=== PATIENT | male | born 1990 | race Caucasian/White ===

== ENCOUNTER 2025-01-08 12:20 | Emergency (ER) | payer MEDICAID, OTHER ==
[~2025-01-08] VITALS: Ht 167.6 cm; Wt 63.5 kg
[2025-01-08] MEDS: IV NORMAL SALINE 1000 ML BAG IV ONE (13:04)
[2025-01-08 13:07] LABS: PLATELET COUNT (AUTO) 253 K/uL (152-348); RED BLOOD CELL COUNT(AUTO) 5.56 MIL/uL (4.06-5.63); RED CELL DISTRIBUTION WIDTH 13.0 % (12.1-16.2); WHITE BLOOD COUNT (AUTO) 11.4 K/uL (3.6-10.2)
[2025-01-08 13:13] LABS: CREATININE 0.9 mg/dL (0.6-1.3); SODIUM SERUM 142.0 mmol/L (136-145); UREA NITROGEN, BLOOD 8.0 mg/dL (7-18)
[2025-01-08 13:19] LABS: ASPARTATE AMINOTRANSFERASE 19.0 U/L (15-37); TOTAL PROTEIN, SERUM 7.9 g/dL (6.4-8.2)
[2025-01-08] MEDS ORDERED: RABE20TA32 PO (13:43)
[2025-01-08 14:12] VITALS: BP 137/63; TEMP 97.9; O2SAT 98
== END 2025-01-08 14:00 | disposition home or self-care (01) ==
LOC: ER 12:20
DX: K27.9 Peptic ulcer, site unspecified, unspecified as acute or chronic, without hemorrhage or perforation (principal); F17.210 Nicotine dependence, cigarettes, uncomplicated; Z87.448 Personal history of other diseases of urinary system; Z87.438 Personal history of other diseases of male genital organs; Z60.2 Problems related to living alone
CPT/HCPCS: 99284; 96360; 76705; 80076; 80048; 83690; 85025; 36415; J7040; A4606; A4663

== ENCOUNTER 2025-05-24 17:29 | Emergency (ER) | payer OTHER ==
[~2025-05-24] VITALS: Ht 167.6 cm; Wt 63.5 kg
[~2025-05-24 17:29] MED LIST: RABE20TA33 PO
[2025-05-24] MEDS ORDERED: ACETAMINOPHEN 500 MG TABLET ONE (19:24)
[2025-05-24] MEDS: IV NORMAL SALINE 1000 ML BAG IV ONE (19:27)
[2025-05-24] MEDS: ACETAMINOPHEN 500 MG TABLET PO ONE (19:28)
[2025-05-24 19:31] LABS: PLATELET COUNT (AUTO) 323 K/uL (152-348); RED BLOOD CELL COUNT(AUTO) 5.95 MIL/uL (4.06-5.63); RED CELL DISTRIBUTION WIDTH 13.0 % (12.1-16.2); WHITE BLOOD COUNT (AUTO) 10.4 K/uL (3.6-10.2)
[2025-05-24 19:43] LABS: CREATININE 0.9 mg/dL (0.6-1.3); SODIUM SERUM 141 mmol/L (136-145); UREA NITROGEN, BLOOD 12 mg/dL (7-18)
[2025-05-24 19:49] LABS: ASPARTATE AMINOTRANSFERASE 33 U/L (15-37); TOTAL PROTEIN, SERUM 8.7 g/dL (6.4-8.2)
[2025-05-24 20:00] VITALS: BP 129/88
[2025-05-24 23:26] VITALS: BP 124/90; O2SAT 100
== END 2025-05-24 23:27 | disposition home or self-care (01) ==
LOC: ER 17:38
DX: J02.9 Acute pharyngitis, unspecified (principal); R07.89 Other chest pain; F17.200 Nicotine dependence, unspecified, uncomplicated; R51.9 Headache, unspecified; R04.0 Epistaxis; Z87.11 Personal history of peptic ulcer disease; Z20.822 Contact with and (suspected) exposure to COVID-19
CPT/HCPCS: 36415; 70450; 71045; 84484; 85025; 85730; 86403; 87070; A4606; A4663; A9150; J7040

== ENCOUNTER 2025-06-30 22:52 | Emergency (ER) | payer OTHER ==
[~2025-06-30] VITALS: Ht 165.1 cm; Wt 76.7 kg
[2025-06-30 23:07] VITALS: BP 133/84
[2025-06-30] MEDS ORDERED: IBUP-2760 PO (23:24)
[2025-06-30 23:28] VITALS: TEMP 98.7
[2025-06-30] MEDS: ACETAMINOPHEN 500 MG TABLET PO ONE (23:28)
[2025-06-30] MEDS: IBUPROFEN 400 MG TABLET PO ONE (23:28)
[2025-06-30 23:29] VITALS: BP 133/84; O2SAT 98
== END 2025-06-30 23:31 | disposition home or self-care (01) ==
LOC: ER 22:54
DX: R07.89 Other chest pain (principal); F17.200 Nicotine dependence, unspecified, uncomplicated; Z87.11 Personal history of peptic ulcer disease
CPT/HCPCS: A4606; A4663